=== PATIENT | female | born 1935 | race Caucasian/White ===

== ENCOUNTER 2020-11-04 10:53 | Outpatient (CLI) | payer MEDICARE | END 2020-11-04 10:54 | disposition home or self-care (01) | LOC: CSHMAMMO 10:53 | PROVIDERS: ATTEND Internal Medicine Rheumatology | DX: M81.0 Age-related osteoporosis without current pathological fracture (principal) | CPT/HCPCS: 77080 ==

== ENCOUNTER 2021-07-02 16:38 | Outpatient (CLI) | payer MEDICARE | END 2021-07-02 16:39 | disposition home or self-care (01) | LOC: CSHRAD 16:38 | PROVIDERS: ATTEND Family Medicine | DX: R05.9 Cough, unspecified (principal); I99.8 Other disorder of circulatory system | CPT/HCPCS: 71046 ==

== ENCOUNTER 2021-07-10 08:03 | Outpatient (CLI) | payer MEDICARE | END 2021-07-10 08:04 | disposition home or self-care (01) | LOC: CSHCT 08:03 | PROVIDERS: ATTEND Family Medicine | DX: R91.8 Other nonspecific abnormal finding of lung field (principal); K22.89 Other specified disease of esophagus; K44.9 Diaphragmatic hernia without obstruction or gangrene; Z93.1 Gastrostomy status | CPT/HCPCS: 71260; 82565 ==

== ENCOUNTER 2022-10-15 11:08 | Outpatient (CLI) | payer MEDICARE | END 2022-10-15 11:09 | disposition home or self-care (01) | LOC: CSHMAMMO 11:08 | PROVIDERS: ATTEND Internal Medicine Rheumatology | DX: M81.0 Age-related osteoporosis without current pathological fracture (principal); M85.88 Other specified disorders of bone density and structure, other site | CPT/HCPCS: 77080 ==